=== PATIENT | male | born 1990 | race African-American/Black ===

== ENCOUNTER 2018-03-08 08:54 | Emergency (ER) | payer SELFPAY ==
[2018-03-08 09:09] VITALS: BP 114/63
[2018-03-08] MEDS ORDERED: KETOROLAC TROMETHAMINE 60 MG/2 ML SDV IM ONE (09:22)
[2018-03-08] MEDS ORDERED: HYDROCODONE/ACETAMINOPHEN 5-325 MG (6 TAB/ER DISP) PO PRN (09:26)
--- NOTE | 2018-03-08 09:27 | ER Document Report ---
HPI - HPI Pain Level: 5 Notes: Patient is a 27-year-old male who presents to the ED requesting refill of his narcotic medication as well as his antibiotic that he was given yesterday status post incision and drainage. Patient states that he lost his prescriptions. Patient would also like a shot for pain. He has no other concerns or complaints. Denies drug allergies. Denies any headache, fever, URI , sore throat, chest pain, palpitations, syncope, cough, shortness of breath, wheeze, dyspnea, abdominal pain, nausea/vomiting/diarrhea, urinary retention, dysuria, hematuria. - ROS Systems Reviewed and Negative: Yes All other systems reviewed and negative - CONSTITUTIONAL Constitutional: DENIES: Fever, Chills - EENT EENT: DENIES: Sore Throat, Ear Pain, Eye problems - CARDIOVASCULAR Cardiovascular: DENIES: Chest pain - RESPIRATORY Respiratory: DENIES: Trouble Breathing, Coughing - GASTROINTESTINAL Gastrointestinal: DENIES: Abdominal Pain, Black / Bloody Stools - URINARY Urinary: DENIES: Dysuria, Urgency, Frequency - REPRODUCTIVE Reproductive: DENIES: :, Postmenopausal, Abnormal bleeding / discharge Past Medical History - Social History Smoking Status: Current Every Day Smoker Chew tobacco use (# tins/day): No Frequency of alcohol use: Occasional Family History: None Patient has suicidal ideation: No Patient has homicidal ideation: No Renal/ Medical History: Denies: Hx Peritoneal Dialysis Vertical Provider Document - CONSTITUTIONAL Agree With Documented VS: Yes Notes: PHYSICAL EXAMINATION: GENERAL: Well-appearing, well-nourished and in no acute distress. LUNGS: Breath sounds clear to auscultation bilaterally and equal. No wheezes rales or rhonchi. HEART: Regular rate and rhythm without murmurs, rubs, gallops. Musculoskeletal: FROM to passive/active. Strength 5+/5. Extremities: No cyanosis, clubbing, or edema b/l. Peripheral pulses 2+. Capillary refill less than 3 seconds. NEUROLOGICAL: Normal speech, normal gait. PSYCH: Normal mood, normal affect. SKIN: Incision and drainage site noted with packing still in place. No streaking or purulence noted. - INFECTION CONTROL TRAVEL OUTSIDE OF THE [place] IN LAST 30 DAYS: No Course - Re-evaluation Re-evalutation: 03/08/18 09:24 Patient is an afebrile, well-hydrated, 27-year-old male who presents to the ED for medication refill status post incision and drainage performed yesterday as he lost his prescriptions. Vitals are acceptable. PE is otherwise unremarkable. Reviewed with patient that we will not be refilling the Percocet , but will refill the Bactrim. Toradol given IM today. No further labs or imaging warranted. Recheck with your PCM in 2-3 days. Return to the ED with any worsening/concerning symptoms otherwise as reviewed in discharge. Patient is in agreement. - Vital Signs Vital signs: Temp Pulse Resp BP Pulse Ox 98.4 F 71 16 114/63 98 03/08/18 09:07 03/08/18 09:07 03/08/18 09:07 03/08/18 09:07 03/08/18 09:07 Discharge - Discharge Clinical Impression: Medication refill Condition: Stable Disposition: HOME, SELF-CARE Additional Instructions: Wound instructions per your last visit Take medications as directed Recheck with your PCM in 2-3 days Return to the ED with any worsening symptoms and/or development of fever, headache, chest pain, palpitations, syncope, shortness of breath, trouble breathing, abdominal pain, n/v/d, blood in stool/urine, red streaks, worsening purulence or erythema, or other worsening symptoms that are concerning to you. Prescriptions: Sulfamethoxazole/Trimethoprim [Bactrim Ds Tablet] 1 each PO BID #20 tablet Forms: Smoking Cessation Education Referrals: [facility] [Provider Group] - Follow up as needed [facility] [Provider Group] - Follow up as needed
== END 2018-03-08 09:55 | disposition home or self-care (01) ==
LOC: ER 08:54
DX: Z76.0 Encounter for issue of repeat prescription (principal); Z98.890 Other specified postprocedural states; F17.200 Nicotine dependence, unspecified, uncomplicated
CPT/HCPCS: 99281; 96372; J1885